=== PATIENT | female | born 1995 | race Caucasian/White ===

== ENCOUNTER 2025-05-19 18:30 | Emergency (ER) | payer BC ==
[~2025-05-19] VITALS: Ht 149.9 cm; Wt 105.9 kg
[2025-05-19] MEDS ORDERED: ALBUTEROL/IPRATROPIUM 3 ML NEB INH ONE (20:00)
[2025-05-19] MEDS ORDERED: predniSONE 20 MG TAB PO ONE (20:00)
[2025-05-19 20:07] LABS: BASOPHILS 0.5 % (0.1-1.2); EOSINOPHILS 2.1 % (0.7-5.8); LYMPHOCYTES 19.1 % (19.3-51.7); MCH 29.7 PG (25.6-32.2); MCHC 34.3 g/dL (32.2-35.5); MCV 86.5 fL (79.4-94.8); MONOCYTES 4.7 % (4.7-12.5); NEUTROPHILS 71.8 % (34.0-71.1); RBC 4.45 M/uL (3.93-5.22)
[2025-05-19 20:29] LABS: ALT (SGPT) 95.0 U/L (14-59); AST (SGOT) 46.0 U/L (15-37); GLOMERULAR FILTRATION RATE,EST 92.0 mL/min (>60); PROTEIN, TOTAL 7.1 g/dL (6.4-8.2); UREA NITROGEN 8.0 mg/dL (7-18)
[2025-05-19 20:32] LABS: TSH, 3RD GENERATION 1.287 uIU/mL (0.358-3.740)
[2025-05-19] MEDS ORDERED: METHYLPREDNISOLO4 M1 PO ×2 (21:09→21:17)
[2025-05-19] MEDS ORDERED: FLONASE ALLERG9.9 ML NAS ×2 (21:09→21:17)
[2025-05-19] MEDS ORDERED: ALBUTEROL SULFATE 8 GM HOME.PACK INH ONE (21:15)
[2025-05-19 21:20] VITALS: BP 112/72
--- NOTE | 2025-05-19 21:23 | EKG ---
[facility] [address] [facility] [place], [place] [address] Signed Normal sinus rhythm Normal ECG Confirmed by Jed Nix DO ([id number]) on 05/19/2025 9:23:01 PM Electronically Signed By: JED NIX DO 05/19/[id number] PATIENT NAME: DANNY JAMES Electrocardiogram DATE OF : [birth year] PHYSICIAN: JED NIX DO REPORT #: [id number] REPORT IS CONFIDENTIAL AND NOT TO BE RELEASED WITHOUT AUTHORIZATION
== END 2025-05-19 21:19 | disposition home or self-care (01) ==
LOC: ED 18:30
PROVIDERS: Internal Medicine
DX: J30.9 Allergic rhinitis, unspecified (principal); R55 Syncope and collapse; Z91.018 Allergy to other foods
CPT/HCPCS: 36415; 71045; 80053; 83735; 83880; 84443; 84484; 84703; 85025; 93005; 93010; 94640; 99284-25; J7512